=== PATIENT | female | born 1995 ===

== ENCOUNTER 2018-06-28 01:02 | Emergency (ER) | payer SELFPAY ==
[2018-06-28 01:06] VITALS: O2SAT 98
--- NOTE | 2018-06-28 02:13 | ED PDOC ---
HPI: Psych/Substance Abuse Time Seen by Provider: 06/28/18 01:08 Chief Complaint (Nursing): Alcohol Ingestion Chief Complaint (Provider): Alcohol Ingestion History Per: Patient History/Exam Limitations: intoxication Additional Complaint(s): Patient is a 23 y/o female with no signgiicant past medical history who was brought to the ED due to intoxication. Patient reports she just recently turned 23 and was going out drinking with her friends. They were out in [place] when [place] [employer] picked her up alone. She states she doesn't know where her friends are but her sober sister will come pick her up. pt denies head trauma or pain or dizziness. Past Medical History Reviewed: Historical Data, Nursing Documentation, Vital Signs Vital Signs: Last Vital Signs Temp 98 F 06/28/18 01:03 Pulse 95 H 06/28/18 01:03 Resp 18 06/28/18 01:03 BP 117/82 06/28/18 01:03 Pulse Ox 98 06/28/18 01:03 - Medical History PMH: No Chronic Diseases - Surgical History Surgical History: No Surg Hx - Family History Family History: States: Unknown Family Hx - Social History Current smoker - smoking cessation education provided: No Alcohol: None Drugs: Denies - Allergies Allergies/Adverse Reactions: Allergies Allergy/AdvReac Type Severity Reaction Status Date / Time No Known Allergies Allergy Verified 06/28/18 01:03 Review of Systems Review Of Systems: ROS cannot be obtained secondary to pt's inabilty to answer questions. Physical Exam - Reviewed Nursing Documentation Reviewed: Yes Vital Signs Reviewed: Yes - Physical Exam Appears: Positive for: Non-toxic, No Acute Distress Head Exam: Positive for: ATRAUMATIC, NORMOCEPHALIC Skin: Positive for: Normal Color, Warm, Dry Eye Exam: Positive for: EOMI, Normal appearance, PERRL ENT: Positive for: Normal ENT Inspection Neck: Positive for: Normal, Painless ROM, Supple Cardiovascular/Chest: Positive for: Regular Rate, Rhythm. Negative for: Murmur Respiratory: Positive for: Normal Breath Sounds. Negative for: Respiratory Distress Gastrointestinal/Abdominal: Positive for: Normal Exam, Soft. Negative for: Tenderness Back: Positive for: Normal Inspection. Negative for: L CVA Tenderness, R CVA Tenderness Extremity: Positive for: Normal ROM. Negative for: Pedal Edema, Deformity Neurologic/Psych: Positive for: Alert, Oriented. Negative for: Motor/Sensory Deficits - ECG O2 Sat by Pulse Oximetry: 98 (RA) Pulse Ox Interpretation: Normal Medical Decision Making Medical Decision Making: Time: 01:15 Initial Impression: ETOH intox. pt with non focal neuro exam, stable gait. family will come pick pt up. Time: 02:33 --Patient's sister has arrived. At this time patient is sober enough to leave. She requires no further treatment and will be discharged. ----- Scribe Attestation: Documented by Ildefonso Pardo, acting as a scribe for Val Chowdhury MD Provider Scribe Attestation: All medical record entries made by the Scribe were at my direction and personally dictated by me. I have reviewed the chart and agree that the record accurately reflects my personal performance of the history, physical exam, medical decision making, and the department course for this patient. I have also personally directed, reviewed, and agree with the discharge instructions and disposition. Disposition - Clinical Impression Clinical Impression: Alcohol abuse - Patient ED Disposition Is Patient to be Admitted: No Counseled Patient/Family Regarding: Studies Performed, Diagnosis, Need For Followup - Disposition Disposition: Routine/Home Disposition Time: 02:25 Condition: IMPROVED Additional Instructions: follow up with your doctor this week return to the ED with any worsening or concerning symptoms Instructions: Alcohol Abuse and Alcoholism (DC) Forms: Flo[employer] ([place]ish)
[2018-06-28 05:32] VITALS: BP 112/68; PULSE 72; RESP 16; TEMP 98.3
== END 2018-06-28 02:37 | disposition home or self-care (01) ==
LOC: H.ER 01:02
DX: F10.129 Alcohol abuse with intoxication, unspecified (principal)